=== PATIENT | male | born 1970 | race Two or more races ===

== ENCOUNTER 2017-11-15 09:19 | Outpatient (CLI) | payer OTHER ==
[~2017-11-15 09:19] MED LIST: [UNRECOGNIZED DRUG - OTHER]
== END 2017-11-15 09:51 | disposition home or self-care (01) ==
LOC: LAB 09:19
DX: N52.8 Other male erectile dysfunction (principal); D35.2 Benign neoplasm of pituitary gland; R73.01 Impaired fasting glucose; E78.2 Mixed hyperlipidemia

== ENCOUNTER 2018-07-25 09:17 | Outpatient (CLI) | payer OTHER | END 2018-07-25 09:20 | disposition home or self-care (01) | LOC: LAB 09:17 | DX: E22.1 Hyperprolactinemia (principal); E78.2 Mixed hyperlipidemia ==

== ENCOUNTER 2021-01-30 10:26 | Outpatient (CLI) | payer OTHER | END 2021-01-30 10:37 | disposition home or self-care (01) | LOC: RAD 10:26 | PROVIDERS: ATTEND Orthopaedic Surgery | DX: M79.672 Pain in left foot (principal); M25.572 Pain in left ankle and joints of left foot ==

== ENCOUNTER 2021-01-30 11:22 | Outpatient (CLI) | payer OTHER | END 2021-01-30 11:27 | disposition home or self-care (01) | LOC: LAB 11:22 | PROVIDERS: ATTEND Radiology Diagnostic Radiology | DX: N20.0 Calculus of kidney (principal) ==

== ENCOUNTER 2021-02-17 08:58 | Outpatient (CLI) | payer OTHER | END 2021-02-17 09:08 | disposition home or self-care (01) | LOC: LAB 08:58 | PROVIDERS: ATTEND Orthopaedic Surgery | DX: E83.42 Hypomagnesemia (principal); M85.9 Disorder of bone density and structure, unspecified; E88.89 Other specified metabolic disorders; E56.1 Deficiency of vitamin K; M81.8 Other osteoporosis without current pathological fracture ==

== ENCOUNTER 2021-02-27 09:13 | Outpatient (CLI) | payer OTHER | END 2021-02-27 09:34 | disposition home or self-care (01) | LOC: MRI 09:13 | PROVIDERS: ATTEND Internal Medicine Endocrinology, Diabetes & Metabolism | DX: D35.2 Benign neoplasm of pituitary gland (principal) | CPT/HCPCS: 70552 ==

== ENCOUNTER 2021-02-28 10:00 | Outpatient (CLI) | payer OTHER | END 2021-02-28 10:01 | disposition home or self-care (01) | LOC: NUCLEAR 10:00 | PROVIDERS: ATTEND Orthopaedic Surgery | DX: M81.0 Age-related osteoporosis without current pathological fracture (principal) ==

== ENCOUNTER 2021-06-09 08:36 | Outpatient (CLI) | payer OTHER | END 2021-06-09 08:53 | disposition home or self-care (01) | LOC: LAB 08:36 | PROVIDERS: ATTEND Internal Medicine Endocrinology, Diabetes & Metabolism | DX: E56.8 Deficiency of other vitamins (principal); E55.9 Vitamin D deficiency, unspecified; M85.80 Other specified disorders of bone density and structure, unspecified site; Q22.1 Congenital pulmonary valve stenosis; E78.2 Mixed hyperlipidemia; R73.01 Impaired fasting glucose ==

== ENCOUNTER → 2022-10-12 09:01 | Outpatient (CLI) | payer OTHER | END | disposition home or self-care (01) | LOC: LAB 09:01 | PROVIDERS: ATTEND Internal Medicine Endocrinology, Diabetes & Metabolism | DX: E22.1 Hyperprolactinemia (principal) ==

== ENCOUNTER 2023-01-11 08:35 | Outpatient (CLI) | payer OTHER | END 2023-01-11 08:37 | disposition home or self-care (01) | LOC: LAB 08:35 | DX: E78.00 Pure hypercholesterolemia, unspecified (principal); E66.9 Obesity, unspecified; Z71.3 Dietary counseling and surveillance ==

== ENCOUNTER 2023-01-11 08:57 | Outpatient (CLI) | payer OTHER | END 2023-01-11 09:05 | disposition home or self-care (01) | LOC: RAD 08:57 | PROVIDERS: ATTEND Physical Medicine & Rehabilitation | DX: M54.2 Cervicalgia (principal); M25.511 Pain in right shoulder; M25.551 Pain in right hip ==

== ENCOUNTER 2023-02-15 11:01 | Outpatient (CLI) | payer OTHER | END 2023-02-15 11:09 | disposition home or self-care (01) | LOC: LAB 11:01 | PROVIDERS: ATTEND Orthopaedic Surgery | DX: E55.9 Vitamin D deficiency, unspecified (principal); M85.9 Disorder of bone density and structure, unspecified; E56.1 Deficiency of vitamin K; N40.0 Benign prostatic hyperplasia without lower urinary tract symptoms ==

== ENCOUNTER 2023-02-22 10:29 | Outpatient (CLI) | payer OTHER | END 2023-02-22 10:42 | disposition home or self-care (01) | LOC: LAB 10:29 | PROVIDERS: ATTEND Internal Medicine Endocrinology, Diabetes & Metabolism | DX: M88.82 Osteitis deformans of upper arm (principal); E55.9 Vitamin D deficiency, unspecified; R73.01 Impaired fasting glucose; E22.1 Hyperprolactinemia; E78.2 Mixed hyperlipidemia ==

== ENCOUNTER → 2023-03-03 13:01 | Outpatient (CLI) | payer OTHER | END | disposition home or self-care (01) | LOC: NUCLEAR 13:00 | PROVIDERS: ATTEND Orthopaedic Surgery | DX: M81.0 Age-related osteoporosis without current pathological fracture (principal) ==

== ENCOUNTER 2023-04-22 23:04 | Emergency (ER) | payer OTHER ==
[~2023-04-22] VITALS: Ht 170.2 cm; Wt 83.0 kg
[2023-04-22] MEDS ORDERED: [UNRECOGNIZED DRUG - OTHER] (23:12)
[2023-04-23] MEDS ORDERED: KETO10TA2 PO (04:59)
[2023-04-23] MEDS ORDERED: MEDROLPACK PO (04:59)
== END 2023-04-23 05:03 | disposition home or self-care (01) ==
LOC: ER 23:04
DX: S93.491A Sprain of other ligament of right ankle, initial encounter (principal); W19.XXXA Unspecified fall, initial encounter; Y93.89 Activity, other specified; Y92.89 Other specified places as the place of occurrence of the external cause

== ENCOUNTER 2023-07-12 09:43 | Outpatient (CLI) | payer OTHER ==
[~2023-07-12 09:43] MED LIST changes: +KETO10TA2 PO; +MEDROLPACK PO; +[UNRECOGNIZED DRUG - OTHER]
== END 2023-07-12 09:47 | disposition home or self-care (01) ==
LOC: LAB 09:43
DX: R73.01 Impaired fasting glucose (principal); E78.2 Mixed hyperlipidemia; E22.1 Hyperprolactinemia

== ENCOUNTER 2023-12-27 08:49 | Outpatient (CLI) | payer OTHER ==
[2023-12-27 11:11] LABS: URINE APPEARANCE Clear; URINE BILIRRUBIN Negative (NEGATIVE); URINE BLOOD Negative; URINE COLOR Yellow; URINE GLUCOSE Negative (NEGATIVE); URINE LEUKOCYTE Negative; URINE NITRATE Negative; URINE PROTEIN Negative (NEGATIVE); URINE UROBILINOGEN 0.2 E.U./dl
[2023-12-27 11:15] LABS: URINE RBC 2.5 uL (0.0-20.8)
[2023-12-27 11:18] LABS: HEMATOCRIT 49.8 % (39.0-48.0); MEAN CORPUSCULAR HEMOGLOBIN 30.7 pg (27.00-32.0); MEAN CORPUSCULAR HGB CONC 34.1 g/dl (32.0-36.0); PLATELET COUNT 307 K/uL (150-450); RED BLOOD COUNT 5.53 M/uL (4.00-6.00)
[2023-12-27 11:50] LABS: URINE BACTERIA 2.5 uL (0.0-1933); URINE EPITHELIAL CELLS 0.4 uL (0.0-38.8); URINE WBC 0.7 uL (0.0-23.2)
[2023-12-27 12:08] LABS: CALCIUM 9.6 mg/dL (8.5-10.1); CREATININE SERUM 0.91 mg/dL (0.70-1.30); GFR 86.82; POTASSIUM 4.49 mEq/L (3.5-5.1)
== END 2023-12-27 08:55 | disposition home or self-care (01) ==
LOC: LAB 08:49
PROVIDERS: ATTEND Internal Medicine Endocrinology, Diabetes & Metabolism
DX: E78.2 Mixed hyperlipidemia (principal); D38.2 Neoplasm of uncertain behavior of pleura; Z13.1 Encounter for screening for diabetes mellitus

== ENCOUNTER 2024-11-20 09:38 | Outpatient (CLI) | payer OTHER ==
[2024-11-20 11:07] LABS: PH,URINE 7.5 (5.0-8.0); URINE APPEARANCE Cloudy; URINE BILIRRUBIN Negative (NEGATIVE); URINE BLOOD Negative; URINE COLOR Yellow; URINE GLUCOSE Negative (NEGATIVE); URINE KETONE Negative (NEGATIVE); URINE LEUKOCYTE Negative; URINE NITRATE Negative; URINE PROTEIN Negative (NEGATIVE); URINE UROBILINOGEN 0.2 E.U./dl
[2024-11-20 11:11] LABS: URINE BACTERIA 4.8 uL (0.0-1933)
[2024-11-20 11:25] LABS: URINE EPITHELIAL CELLS 0.6 uL (0.0-38.8); URINE WBC 1.5 uL (0.0-23.2)
[2024-11-20 11:47] LABS: ALBUMIN 4.1 gm/dL (3.4-5.0); BILIRUBIN TOTAL 0.51 mg/dL (0.3-1.2); CALCIUM 9.4 mg/dL (8.5-10.1); CHOL HDL RATIO 4.6 (0-5.0); CREATININE SERUM 0.88 mg/dL (0.70-1.30); GFR 89.91; GLOBULINA 3.3 G/DL (2.4-3.5); POTASSIUM 4.58 mEq/L (3.5-5.1); TOTAL PROTEIN 7.4 gm/dL (6.4-8.2); TSH 1.61 uIU/mL (0.358-3.74)
[2024-11-20 11:50] LABS: MEAN CELL VOLUME 93.2 fL (80.0-100.00); PLATELET COUNT 269 K/uL (150-450); RED BLOOD COUNT 5.68 M/uL (4.00-6.00); RED CELL DISTRIBUTION WIDTH 14.1 % (11.5-14.5)
[2024-11-20 11:51] LABS: HEMOGLOBIN 17.5 g/dL (13-16.00); MEAN CORPUSCULAR HEMOGLOBIN 30.8 pg (27.00-32.0)
== END 2024-11-20 09:49 | disposition home or self-care (01) ==
LOC: LAB 09:38
PROVIDERS: ATTEND Internal Medicine Endocrinology, Diabetes & Metabolism
DX: E55.9 Vitamin D deficiency, unspecified (principal); Z86.39 Personal history of other endocrine, nutritional and metabolic disease; E22.1 Hyperprolactinemia; E78.2 Mixed hyperlipidemia

== ENCOUNTER → 2024-12-18 10:05 | Outpatient (CLI) | payer OTHER ==
[2024-12-21 10:08] LABS: FOLLICLE STIMULATING HORMONE 6.8 mIU/mL (1.5-12.4); PROLACTIN 38.3 ng/mL (3.6-25.2)
== END | disposition home or self-care (01) ==
LOC: LAB 10:05
PROVIDERS: ATTEND Internal Medicine Endocrinology, Diabetes & Metabolism
DX: E22.1 Hyperprolactinemia (principal); E29.1 Testicular hypofunction; Z12.5 Encounter for screening for malignant neoplasm of prostate

== ENCOUNTER → 2025-03-29 10:17 | Outpatient (CLI) | payer OTHER ==
[2025-03-29 11:05] LABS: BASO % 0.8 % (0.1-1.2); EOS # 0.19 (0.04-0.54); EOS % 2.1 % (0.7-7.0); HEMATOCRIT 49.9 % (40.1-51.0); HEMOGLOBIN 16.9 g/dL (13.7-17.5); LYMPH # 3.58 (1.18-3.74); LYMPH % 39.3 % (19.3-53.1); MEAN CORPUSCULAR HEMOGLOBIN 30.7 pg (25.6-32.2); MONO # 0.75 (0.24-0.82); MONO % 8.2 % (4.7-12.5); NEUT % 49.5 % (34.0-71.1); PLATELET COUNT 264 K/uL (163-369); RED BLOOD COUNT 5.51 M/uL (4.63-6.08); RED CELL DISTRIBUTION WIDTH 13.2 % (11.6-14.4)
[2025-03-29 12:20] LABS: CREATININE SERUM 0.87 mg/dL (0.70-1.30)
== END | disposition home or self-care (01) ==
LOC: LAB 10:17
PROVIDERS: ATTEND Internal Medicine Hematology & Oncology
DX: I10 Essential (primary) hypertension (principal); D58.2 Other hemoglobinopathies

== ENCOUNTER 2025-03-31 08:56 | Outpatient (CLI) | payer OTHER | END 2025-03-31 09:05 | disposition home or self-care (01) | LOC: MRI 08:56 | PROVIDERS: ATTEND Internal Medicine Hematology & Oncology | DX: E22.1 Hyperprolactinemia (principal); D58.2 Other hemoglobinopathies; E78.2 Mixed hyperlipidemia; K21.00 Gastro-esophageal reflux disease with esophagitis, without bleeding; G47.33 Obstructive sleep apnea (adult) (pediatric); Q53.9 Undescended testicle, unspecified; D35.2 Benign neoplasm of pituitary gland | CPT/HCPCS: 70553 ==

== ENCOUNTER 2025-06-06 07:53 | Outpatient (CLI) | payer OTHER ==
[2025-06-06 09:46] LABS: BASO % 0.8 % (0.1-1.2); EOS # 0.22 (0.04-0.54); EOS % 3.0 % (0.7-7.0); LYMPH # 3.09 (1.18-3.74); LYMPH % 42.1 % (19.3-53.1); MEAN PLATELET VOLUME 10.10 fl (9.4-12.4); MONO # 0.63 (0.24-0.82); MONO % 8.6 % (4.7-12.5); NEUT # 3.32 (1.56-6.13); NEUT % 45.2 % (34.0-71.1); RED CELL DISTRIBUTION WIDTH 13.0 % (11.6-14.4)
[2025-06-06 10:31] LABS: % SATURACION 24.1 % (20-50); ALT/SGPT 35.0 U/L (12-78); AST/SGOT 22.0 U/L (15-37); BILIRUBIN TOTAL 0.61 mg/dL (0.3-1.2); BUN CREA RATIO 15.0 (7.0-25.0); CREATININE SERUM 0.8 mg/dL (0.70-1.30); FE 82.0 ug/dl (65-175); GFR 100.36; GLOBULINA 3.0 G/DL (2.4-3.5); GLUCOSE FASTING 85.0 mg/dL (65-100); LDH 169.0 U/L (87-241); OSMOLALITY SERUM 280.0 MOSM/KG (275-295); PROSTATIC SPECIFIC ANTIGEN 1.85 NG/ML (0.010-4.00)
[2025-06-06 15:29] LABS: FOLIC ACID 5.7 ng/ml (4.78-20)
[2025-06-07 08:51] LABS: MANUAL PLATELET COUNT 254
[2025-06-08 05:07] LABS: PROLACTIN 37.7 ng/mL (3.6-25.2)
== END 2025-06-06 08:25 | disposition home or self-care (01) ==
LOC: LAB 07:53
PROVIDERS: ATTEND Internal Medicine Hematology & Oncology
DX: E22.1 Hyperprolactinemia (principal); D58.2 Other hemoglobinopathies; E78.2 Mixed hyperlipidemia; K21.00 Gastro-esophageal reflux disease with esophagitis, without bleeding; G47.33 Obstructive sleep apnea (adult) (pediatric); Q53.9 Undescended testicle, unspecified; D35.2 Benign neoplasm of pituitary gland; D50.8 Other iron deficiency anemias; R79.9 Abnormal finding of blood chemistry, unspecified; I10 Essential (primary) hypertension; R74.02 Elevation of levels of lactic acid dehydrogenase [LDH]; K76.89 Other specified diseases of liver; D63.8 Anemia in other chronic diseases classified elsewhere; D55.0 Anemia due to glucose-6-phosphate dehydrogenase [G6PD] deficiency; D51.3 Other dietary vitamin B12 deficiency anemia; D52.9 Folate deficiency anemia, unspecified; D51.0 Vitamin B12 deficiency anemia due to intrinsic factor deficiency; D51.1 Vitamin B12 deficiency anemia due to selective vitamin B12 malabsorption with proteinuria; R97.0 Elevated carcinoembryonic antigen [CEA]; R97.8 Other abnormal tumor markers

== ENCOUNTER 2025-09-24 09:26 | Outpatient (CLI) | payer OTHER ==
[2025-09-24 10:39] LABS: BASO % 0.6 % (0.1-1.2); EOS # 0.23 (0.04-0.54); EOS % 2.8 % (0.7-7.0); LYMPH # 3.68 (1.18-3.74); LYMPH % 44.9 % (19.3-53.1); MEAN PLATELET VOLUME 9.50 fl (9.4-12.4); MONO # 0.56 (0.24-0.82); MONO % 6.8 % (4.7-12.5); NEUT # 3.65 (1.56-6.13); NEUT % 44.5 % (34.0-71.1); RED CELL DISTRIBUTION WIDTH 13.1 % (11.6-14.4)
[2025-09-24 10:52] LABS: ALT/SGPT 40.0 U/L (12-78); AST/SGOT 22.0 U/L (15-37); BILIRUBIN TOTAL 1.0 mg/dL (0.3-1.2); BUN CREA RATIO 13.0 (7.0-25.0); CREATININE SERUM 1.07 mg/dL (0.70-1.30); FE 157.0 ug/dl (65-175); GFR 71.49; GLOBULINA 3.2 G/DL (2.4-3.5); GLUCOSE FASTING 94.0 mg/dL (65-100); LDH 177.0 U/L (87-241); OSMOLALITY SERUM 281.0 MOSM/KG (275-295); PROSTATIC SPECIFIC ANTIGEN 1.7 NG/ML (0.010-4.00)
[2025-09-26 12:55] LABS: FOLIC ACID 18.14 ng/ml (4.78-20)
== END 2025-09-24 09:41 | disposition home or self-care (01) ==
LOC: LAB 09:26
PROVIDERS: ATTEND Internal Medicine Hematology & Oncology
DX: D50.8 Other iron deficiency anemias (principal); E22.1 Hyperprolactinemia; D58.2 Other hemoglobinopathies; E78.2 Mixed hyperlipidemia; K21.00 Gastro-esophageal reflux disease with esophagitis, without bleeding; G47.33 Obstructive sleep apnea (adult) (pediatric); Q53.9 Undescended testicle, unspecified; D35.2 Benign neoplasm of pituitary gland; I10 Essential (primary) hypertension; R74.02 Elevation of levels of lactic acid dehydrogenase [LDH]; K76.89 Other specified diseases of liver; R97.0 Elevated carcinoembryonic antigen [CEA]